=== PATIENT | female | born 1955 ===

== ENCOUNTER 2019-07-02 11:27 | Emergency (ER) | payer OTHER ==
[~2019-07-02] VITALS: Ht 160 cm; Wt 57.6 kg
[2019-07-02] MEDS ORDERED: CARDIZEM30 MG PO (12:53)
== END 2019-07-02 11:50 | disposition designated cancer center or children's hospital (05) ==
LOC: ER 11:27
DX: I21.19 ST elevation (STEMI) myocardial infarction involving other coronary artery of inferior wall (principal)